=== PATIENT | male | born 1950 | race Caucasian/White ===

== ENCOUNTER → 2023-06-05 07:37 | Outpatient (REF) | payer MEDICARE, BC, SELFPAY | LOC: EMG 07:37 | PROVIDERS: ATTENDING PHYSICIAN Pain Medicine Interventional Pain Medicine; FAMILY PHYSICIAN Family Medicine | DX: M54.16 Radiculopathy, lumbar region (principal); R20.0 Anesthesia of skin | CPT/HCPCS: 95886; 95911 ==

== ENCOUNTER → 2023-06-26 13:29 | Outpatient (REF) | payer MEDICARE, BC, SELFPAY | LOC: PAVMRI 13:29 | PROVIDERS: ATTENDING PHYSICIAN Pain Medicine Interventional Pain Medicine; FAMILY PHYSICIAN Family Medicine | DX: M54.16 Radiculopathy, lumbar region (principal) | CPT/HCPCS: 72148 ==

== ENCOUNTER → 2024-07-22 14:03 | Outpatient (REF) | payer MEDICARE, BC, SELFPAY | LOC: HWRAD 14:03 | PROVIDERS: ATTENDING PHYSICIAN Physician Assistant Medical; FAMILY PHYSICIAN Family Medicine | DX: R60.0 Localized edema (principal) | CPT/HCPCS: 93970 ==

== ENCOUNTER → 2024-08-15 13:43 | Outpatient (REF) | payer MEDICARE, BC, SELFPAY | LOC: RCS 13:43 | PROVIDERS: ATTENDING PHYSICIAN Internal Medicine Cardiovascular Disease; FAMILY PHYSICIAN Family Medicine | DX: R60.0 Localized edema (principal) | CPT/HCPCS: 93306 ==

== ENCOUNTER → 2024-09-21 14:19 | Outpatient (REF) | payer MEDICARE, BC, SELFPAY | LOC: RAD 14:19 | PROVIDERS: ATTENDING PHYSICIAN Family Medicine | DX: I89.0 Lymphedema, not elsewhere classified (principal) | CPT/HCPCS: 74178; Q9967 ==

== ENCOUNTER 2024-10-04 07:33 | Outpatient (RCR) | payer MEDICARE, BC, SELFPAY | END 2024-10-04 23:59 | disposition home or self-care (01) | LOC: RPT 07:33 | PROVIDERS: ATTENDING PHYSICIAN Family Medicine | DX: I89.0 Lymphedema, not elsewhere classified (principal); Z73.6 Limitation of activities due to disability; R26.2 Difficulty in walking, not elsewhere classified; R26.89 Other abnormalities of gait and mobility | CPT/HCPCS: 97162; 97530; 97760 ==

== ENCOUNTER 2024-10-24 14:26 | Outpatient (RCR) | payer MEDICARE, BC, SELFPAY | END 2024-10-24 23:59 | disposition home or self-care (01) | LOC: RPT 14:26 | PROVIDERS: ATTENDING PHYSICIAN Family Medicine | DX: I89.0 Lymphedema, not elsewhere classified (principal); Z73.6 Limitation of activities due to disability; R26.2 Difficulty in walking, not elsewhere classified; R26.89 Other abnormalities of gait and mobility | CPT/HCPCS: 97530; 97763 ==

== ENCOUNTER 2024-11-16 14:54 | Outpatient (RCR) | payer MEDICARE, BC, SELFPAY | END 2024-11-16 23:59 | disposition home or self-care (01) | LOC: RPT 14:54 | PROVIDERS: ATTENDING PHYSICIAN Family Medicine | DX: I89.0 Lymphedema, not elsewhere classified (principal); Z73.6 Limitation of activities due to disability; R26.2 Difficulty in walking, not elsewhere classified; R26.89 Other abnormalities of gait and mobility | CPT/HCPCS: 97530 ==

== ENCOUNTER → 2024-12-14 14:18 | Outpatient (REF) | payer MEDICARE, BC, SELFPAY | LOC: RAD 14:18 | PROVIDERS: ATTENDING PHYSICIAN Surgery Vascular Surgery; FAMILY PHYSICIAN Family Medicine | DX: I87.2 Venous insufficiency (chronic) (peripheral) (principal) | CPT/HCPCS: 93970 ==

== ENCOUNTER → 2025-01-31 14:14 | Outpatient (REF) | payer MEDICARE, BC, SELFPAY | LOC: RAD 14:14 | PROVIDERS: ATTENDING PHYSICIAN Family Medicine | DX: R59.9 Enlarged lymph nodes, unspecified (principal); I71.43 Infrarenal abdominal aortic aneurysm, without rupture | CPT/HCPCS: 74178; Q9967 ==